=== PATIENT | female | born 1995 | race Caucasian/White ===

== ENCOUNTER 2018-03-04 07:54 | Inpatient (IN) | payer OTHER ==
[2018-03-04] MEDS: SODIUM CHLORIDE 0.9% 1L BAG IV* (08:44)
[2018-03-04 09:13] LABS: AADO2 Arterial 79.3 mmHg (7.0-24.0); Allen Test ACCEPTAB; Arterial Base Excess 2.8 mmol/L (-3.0-3); Arterial Blood Gas Oxygen Sat 99.3 mmHG (95.0-98.0); Arterial COHb 0.6 % (0.0-3.0); Arterial Fraction of Oxyhgb 98.3 % (93.0-99.0); Arterial MetHb 0.4 % (0.0-1.5); Arterial Total Hemglobin 13.7 g/dl (12.0-18.0); Arterial pCO2 35.6 mmhg (35-45); MODE VENT - AC; Site Left Radial
[2018-03-04 09:23] LABS: ADD MAN DIFF? NO
[2018-03-04 09:32] LABS: ABNORMAL IP MESSAGE 1; BASOPHILS % 0.2 % (0.0-2.0); HEMATOCRIT 27.4 % (37.0-47.0); HEMOGLOBIN 10.3 g/dl (12.0-16.0); LYMPHOCYTES # 1.5 10^3/ul (0.8-2.9); LYMPHOCYTES % 7.1 % (15.0-51.0); MEAN CORPUSCULAR HEMOGLOBIN 28.9 pg (29.0-33.0); MEAN PLATELET VOLUME 8.5 fl (7.4-10.4); MONOCYTE # 1.8 10^3/ul (0.3-0.9); MONOCYTES % 8.3 % (0.0-11.0); NEUTROPHIL # 17.4 10^3/ul (1.6-7.5); NEUTROPHILS % 80.6 % (39.0-77.0); PLATELET COUNT 369 10^3/UL (140-415); RED BLOOD COUNT 3.56 10^6/ul (4.20-5.40); RED CELL DISTRIBUTION WIDTH 13.2 % (11.5-14.5)
[2018-03-04 09:32] LABS: WHITE BLOOD COUNT 21.6 10^3/ul (4.8-10.8)
[2018-03-04 09:37] LABS: MEAN CORPUSCULAR HGB CONC 37.6 g/dl (32.0-37.0)
[2018-03-04 09:51] LABS: LACTIC ACID 1.8 mmol/L (0.5-2.0)
[2018-03-04 09:52] LABS: PROTIME 15.4 Sec (11.9-14.9); PT RATIO 1.2
[2018-03-04 09:53] LABS: ALANINE AMINOTRANSFERASE 63 IU/L (13-69); ALBUMIN 3.2 g/dl (3.3-4.9); ALBUMIN/GLOBULIN RATIO 1.23; ALKALINE PHOSPHATASE 129 IU/L (42-121); ANION GAP 16 (8-16); ASPARTATE AMINO TRANSFERASE 22 IU/L (15-46); BILIRUBIN,INDIRECT 0.3 mg/dl (0-1.1); BILIRUBIN,TOTAL 0.3 mg/dl (0.2-1.3); BLOOD UREA NITROGEN 17 mg/dl (7-20); CALCIUM 8.5 mg/dl (8.4-10.2); CARBON DIOXIDE 28 mmol/L (21-31); CHLORIDE 82 mmol/L (97-110); CREATININE 0.27 mg/dl (0.44-1.00); GLUCOSE 145 mg/dl (70-220); PARTIAL THROMBOPLASTIN TIME 26.4 Sec (25.0-35.0); SODIUM 122 mmol/L (135-144); TOTAL PROTEIN 5.8 g/dl (6.1-8.1)
[2018-03-04 09:55] LABS: PHENYTOIN (DILANTIN) 5.2 ug/ml (10.0-20.0)
[2018-03-04 10:12] LABS: TROPONIN-I 0.121 ng/ml (0.000-0.120)
[2018-03-04] MEDS: CEFEPIME 2GM/50 ML (PMX) 50 ML IVPB ×2 (10:27→20:47)
[2018-03-04 10:42] LABS: ADD UMIC NO; UR ASCORBIC ACID NEGATIVE (NEGATIVE); UR BILIRUBIN (Dip) NEGATIVE (NEGATIVE); UR BLOOD (Dip) NEGATIVE (NEGATIVE); UR CLARITY CLEAR (CLEAR); UR COLOR COLORLESS (YELLOW); UR GLUCOSE (Dip) NEGATIVE (NEGATIVE); UR KETONES (Dip) NEGATIVE (NEGATIVE); UR LEUKOCYTE ESTERASE (Dip) NEGATIVE Leu/ul (NEGATIVE); UR NITRITE (Dip) NEGATIVE (NEGATIVE); UR SPECIFIC GRAVITY (Dip) 1.001 (1.003-1.030); UR TOTAL PROTEIN (Dip) NEGATIVE (NEGATIVE); UR UROBILINOGEN (Dip) NEGATIVE (NEGATIVE)
[2018-03-04] MEDS: ASPIRIN 300 MG SUPP PR (10:44)
[2018-03-04] MEDS: VANCOMYCIN 1 GM (PMX) 250 ML IVPB (10:54)
[2018-03-04] MEDS ORDERED: ACETAMINOPHEN 325 MG TAB PO (11:00)
[2018-03-04] MEDS ORDERED: ONDANSETRON 4 MG INJ IV (11:00)
[2018-03-04] MEDS ORDERED: NACL 0.9% 3 ML SYG IV (11:30)
[2018-03-04 12:20] LABS: LACTIC ACID 1.7 mmol/L (0.5-2.0)
[2018-03-04] MEDS: SOD CHLORIDE 0.9% 1,000 ML IV (12:52)
[2018-03-04] MEDS: PHENYTOIN (100 MG/4 ML) CUP GTB (14:00)
[2018-03-04] MEDS: LEVETIRACETAM (100 MG/ML) 5ML CUP GTB ×2 (14:34→20:43)
[2018-03-04] MEDS: predniSONE 5 MG TAB GTB (14:34)
[2018-03-04] MEDS: METOPROLOL 50 MG TAB GTB ×2 (14:34→20:43)
[2018-03-04 14:35] LABS: LACTIC ACID 1.7 mmol/L (0.5-2.0)
[2018-03-04] MEDS ORDERED: ACETAMINOPHEN 160 MG/5ML CUP GTB (15:00)
[2018-03-04] MEDS: LEVOFLOXACIN 750MG/D5W (PMX) 150 ML IVPB (16:26)
[2018-03-04] MEDS ORDERED: ALBUTEROL 0.083% (NEB) 2.5 MG/3 ML AMP NEB (17:00)
[2018-03-04] MEDS: ALBUTEROL HFA 8 GM INHALER INH ×2 (17:53→19:57)
[2018-03-04 18:24] LABS: CREATINE KINASE < 20 IU/L (23-200)
[2018-03-04 18:24] LABS: SODIUM,URINE RANDOM < 13 mmol/L (30-90)
[2018-03-04 18:35] LABS: CK-MB 0.83 ng/ml (0.0-2.4); TROPONIN-I 0.018 ng/ml (0.000-0.120)
[2018-03-04] MEDS: ACETYLCYSTEINE 20% 4 ML VIAL NEB (19:43)
[2018-03-04 20:10] LABS: OSMOLALITY 263 mOsm/kg (280-295)
[2018-03-04] MEDS: BACITRACIN/POLYMYX 3.5 GM OPH OINT BOTH EYES (20:42)
[2018-03-04] MEDS: FAMOTIDINE 20 MG TAB GTB ×2 (20:43)
[2018-03-04] MEDS: PHENYTOIN (25 MG/ML PO SYG) GTB (20:43)
[2018-03-04] MEDS: MONTELUKAST 10 MG TAB GTB (20:44)
[2018-03-04 20:47] LABS: OSMOLALITY,URINE 79 mOsm/kg (250-1200)
[2018-03-04 22:59] LABS: CK-MB 0.28 ng/ml (0.0-2.4)
[2018-03-04 23:00] LABS: CREATINE KINASE < 20 IU/L (23-200); TROPONIN-I < 0.012 ng/ml (0.000-0.120)
[2018-03-05] MEDS: ALBUTEROL HFA 8 GM INHALER INH ×6 (00:27→20:10)
[2018-03-05 06:44] LABS: ADD MAN DIFF? NO
[2018-03-05 07:07] LABS: WHITE BLOOD COUNT 14.8 10^3/ul (4.8-10.8)
[2018-03-05 07:08] LABS: BASOPHIL # 0.1 10^3/ul (0.0-0.1); BASOPHILS % 0.5 % (0.0-2.0); EOSINOPHILS # 0.1 10^3/ul (0.0-0.5); EOSINOPHILS % 0.5 % (0.0-7.0); HEMATOCRIT 26.1 % (37.0-47.0); HEMOGLOBIN 9.5 g/dl (12.0-16.0); LYMPHOCYTES % 13.6 % (15.0-51.0); MEAN CORPUSCULAR HEMOGLOBIN 28.7 pg (29.0-33.0); MEAN CORPUSCULAR HGB CONC 36.4 g/dl (32.0-37.0); MEAN CORPUSCULAR VOLUME 78.9 fl (82.0-101.0); MEAN PLATELET VOLUME 9.3 fl (7.4-10.4); MONOCYTE # 1.4 10^3/ul (0.3-0.9); MONOCYTES % 9.7 % (0.0-11.0); NEUTROPHIL # 10.7 10^3/ul (1.6-7.5); NEUTROPHILS % 72.8 % (39.0-77.0); PLATELET COUNT 295 10^3/UL (140-415); POSITIVE DIFF @See below; RED BLOOD COUNT 3.31 10^6/ul (4.20-5.40); RED CELL DISTRIBUTION WIDTH 13.7 % (11.5-14.5)
[2018-03-05 07:29] LABS: ANION GAP 13 (8-16); BLOOD UREA NITROGEN 14 mg/dl (7-20); CALCIUM 8.8 mg/dl (8.4-10.2); CARBON DIOXIDE 26 mmol/L (21-31); CHLORIDE 99 mmol/L (97-110); CREATININE 0.17 mg/dl (0.44-1.00); GLUCOSE 117 mg/dl (70-220); POTASSIUM 4.3 mmol/L (3.5-5.1); SODIUM 134 mmol/L (135-144)
[2018-03-05] MEDS: BACITRACIN/POLYMYX 3.5 GM OPH OINT BOTH EYES ×3 (08:58→22:35)
[2018-03-05] MEDS: FAMOTIDINE 20 MG TAB GTB ×3 (08:58→22:35)
[2018-03-05] MEDS: CHOLECALCIFEROL 400 UNITS TAB GTB (08:58)
[2018-03-05] MEDS: predniSONE 5 MG TAB GTB (08:58)
[2018-03-05] MEDS: ACETAMINOPHEN 325 MG TAB GTB (08:58)
[2018-03-05] MEDS: CEFEPIME 2GM/50 ML (PMX) 50 ML IVPB ×2 (08:59→22:35)
[2018-03-05] MEDS: LACTOBACILLUS RHAMNOSUS CAP GTB (08:59)
[2018-03-05] MEDS: METOPROLOL 50 MG TAB GTB ×2 (09:00→22:36)
[2018-03-05] MEDS: LEVETIRACETAM (100 MG/ML) 5ML CUP GTB ×2 (09:00→22:35)
[2018-03-05] MEDS: FERROUS SULFATE 60 MG/ML 5ML CUP PO (09:00)
[2018-03-05] MEDS: PHENYTOIN (25 MG/ML PO SYG) GTB ×2 (09:01→22:35)
[2018-03-05] MEDS: ENOXAPARIN 40 MG/0.4 ML SYG SC (09:21)
[2018-03-05] MEDS: ACETYLCYSTEINE 20% 4 ML VIAL NEB ×2 (09:26→20:11)
[2018-03-05 09:43] LABS: AADO2 Arterial 38.2 mmHg (7.0-24.0); Allen Test ACCEPTAB; Arterial Base Excess 2.8 mmol/L (-3.0-3); Arterial Blood Gas Oxygen Sat 98.8 mmHG (95.0-98.0); Arterial COHb 0.3 % (0.0-3.0); Arterial Fraction of Oxyhgb 98.1 % (93.0-99.0); Arterial HCO3 26.3 mmol/L (22.0-26.0); Arterial MetHb 0.4 % (0.0-1.5); Arterial Total Hemglobin 12.8 g/dl (12.0-18.0); Arterial pCO2 36.6 mmhg (35-45); MODE VENT - AC; Site Left Radial
[2018-03-05] MEDS: LEVOFLOXACIN 750MG/D5W (PMX) 150 ML IVPB (11:09)
[2018-03-05] MEDS: ARTIFICIAL TEARS 15 ML OPH BOTH EYES (11:09)
[2018-03-05] MEDS: MONTELUKAST 10 MG TAB GTB (22:34)
[2018-03-06] MEDS: ALBUTEROL HFA 8 GM INHALER INH ×5 (01:50→19:50)
[2018-03-06 01:59] LABS: ANION GAP 19 (8-16); CARBON DIOXIDE 21 mmol/L (21-31); CHLORIDE 96 mmol/L (97-110); POTASSIUM 5.8 mmol/L (3.5-5.1); SODIUM 130 mmol/L (135-144)
[2018-03-06] MEDS: NA POLYST SULFON 15 GM/60 ML BTL PO (02:39)
[2018-03-06 05:41] LABS: ADD MAN DIFF? NO
[2018-03-06 05:52] LABS: WHITE BLOOD COUNT 13.1 10^3/ul (4.8-10.8)
[2018-03-06 05:52] LABS: BASOPHIL # 0.1 10^3/ul (0.0-0.1); BASOPHILS % 0.5 % (0.0-2.0); EOSINOPHILS # 0.1 10^3/ul (0.0-0.5); EOSINOPHILS % 0.9 % (0.0-7.0); HEMATOCRIT 28.7 % (37.0-47.0); HEMOGLOBIN 10.1 g/dl (12.0-16.0); LYMPHOCYTES # 2.1 10^3/ul (0.8-2.9); LYMPHOCYTES % 16.3 % (15.0-51.0); MEAN CORPUSCULAR HEMOGLOBIN 28.8 pg (29.0-33.0); MEAN CORPUSCULAR HGB CONC 35.2 g/dl (32.0-37.0); MEAN CORPUSCULAR VOLUME 81.8 fl (82.0-101.0); MEAN PLATELET VOLUME 8.8 fl (7.4-10.4); MONOCYTES % 7.4 % (0.0-11.0); NEUTROPHIL # 9.6 10^3/ul (1.6-7.5); NEUTROPHILS % 72.8 % (39.0-77.0); PLATELET COUNT 386 10^3/UL (140-415); RED BLOOD COUNT 3.51 10^6/ul (4.20-5.40)
[2018-03-06 06:39] LABS: ANION GAP 17 (8-16); BLOOD UREA NITROGEN 11 mg/dl (7-20); CARBON DIOXIDE 25 mmol/L (21-31); CHLORIDE 96 mmol/L (97-110); CREATININE 0.19 mg/dl (0.44-1.00); GLUCOSE 129 mg/dl (70-220); MAGNESIUM 1.9 mg/dl (1.7-2.5); PHOSPHORUS 3.9 mg/dl (2.5-4.9); POTASSIUM 4.4 mmol/L (3.5-5.1); SODIUM 134 mmol/L (135-144)
[2018-03-06] MEDS: ARTIFICIAL TEARS 15 ML OPH BOTH EYES (07:43)
[2018-03-06] MEDS: BACITRACIN/POLYMYX 3.5 GM OPH OINT BOTH EYES ×3 (07:43→21:39)
[2018-03-06] MEDS: LORAZEPAM 0.5 MG TAB GTB (07:44)
[2018-03-06] MEDS: CEFEPIME 2GM/50 ML (PMX) 50 ML IVPB ×2 (07:44→21:41)
[2018-03-06] MEDS: LEVETIRACETAM (100 MG/ML) 5ML CUP GTB ×2 (07:45→21:40)
[2018-03-06] MEDS: FERROUS SULFATE 60 MG/ML 5ML CUP PO (07:45)
[2018-03-06] MEDS: ONDANSETRON 4 MG INJ IV (07:45)
[2018-03-06] MEDS: PHENYTOIN (25 MG/ML PO SYG) GTB ×2 (07:46→21:40)
[2018-03-06] MEDS: LACTOBACILLUS RHAMNOSUS CAP GTB (07:46)
[2018-03-06] MEDS: FAMOTIDINE 20 MG TAB GTB ×2 (07:47→21:40)
[2018-03-06] MEDS: predniSONE 5 MG TAB GTB (07:47)
[2018-03-06] MEDS: CHOLECALCIFEROL 400 UNITS TAB GTB (07:47)
[2018-03-06] MEDS: ENOXAPARIN 40 MG/0.4 ML SYG SC (07:59)
[2018-03-06] MEDS: ACETYLCYSTEINE 20% 4 ML VIAL NEB ×2 (08:38→19:50)
[2018-03-06] MEDS ORDERED: METOPROLOL 50 MG TAB GTB (09:00)
[2018-03-06] MEDS ORDERED: METOPROLOL 100 MG TAB PO (09:00)
[2018-03-06] MEDS: METOPROLOL 100 MG TAB GTB ×2 (09:04→21:40)
[2018-03-06] MEDS ORDERED: VANCOMYCIN IV PER PHARMACY XX (09:30)
[2018-03-06] MEDS: metroNIDAZOLE 500 MG/NS (PMX) 100 ML IVPB ×2 (12:30→21:41)
[2018-03-06] MEDS: LEVOFLOXACIN 750MG/D5W (PMX) 150 ML IVPB (12:31)
[2018-03-06] MEDS: VANCOMYCIN 1 GM 250 ML IVPB (13:33)
[2018-03-06] MEDS: VANCOMYCIN 500MG/NS (PMX) 100 ML IVPB (19:54)
[2018-03-06] MEDS: MONTELUKAST 10 MG TAB GTB (21:40)
[2018-03-07] MEDS: ALBUTEROL HFA 8 GM INHALER INH ×4 (01:26→19:24)
[2018-03-07] MEDS: VANCOMYCIN 500MG/NS (PMX) 100 ML IVPB ×2 (03:51→12:42)
[2018-03-07] MEDS: metroNIDAZOLE 500 MG/NS (PMX) 100 ML IVPB ×3 (05:26→21:18)
[2018-03-07 05:30] LABS: ADD MAN DIFF? NO
[2018-03-07 05:34] LABS: BASOPHIL # 0.1 10^3/ul (0.0-0.1); BASOPHILS % 0.6 % (0.0-2.0); EOSINOPHILS # 0.2 10^3/ul (0.0-0.5); EOSINOPHILS % 1.9 % (0.0-7.0); HEMATOCRIT 28.8 % (37.0-47.0); HEMOGLOBIN 10.1 g/dl (12.0-16.0); LYMPHOCYTES # 1.7 10^3/ul (0.8-2.9); MEAN CORPUSCULAR HEMOGLOBIN 28.6 pg (29.0-33.0); MEAN CORPUSCULAR HGB CONC 35.1 g/dl (32.0-37.0); MEAN CORPUSCULAR VOLUME 81.6 fl (82.0-101.0); MEAN PLATELET VOLUME 8.9 fl (7.4-10.4); MONOCYTE # 0.9 10^3/ul (0.3-0.9); MONOCYTES % 8.3 % (0.0-11.0); NEUTROPHIL # 7.7 10^3/ul (1.6-7.5); NEUTROPHILS % 71.1 % (39.0-77.0); PLATELET COUNT 333 10^3/UL (140-415); RED BLOOD COUNT 3.53 10^6/ul (4.20-5.40)
[2018-03-07 05:34] LABS: WHITE BLOOD COUNT 10.8 10^3/ul (4.8-10.8)
[2018-03-07 05:58] LABS: ANION GAP 18 (8-16); BLOOD UREA NITROGEN 8 mg/dl (7-20); CALCIUM 9.1 mg/dl (8.4-10.2); CARBON DIOXIDE 25 mmol/L (21-31); CHLORIDE 95 mmol/L (97-110); GLUCOSE 125 mg/dl (70-220); MAGNESIUM 1.8 mg/dl (1.7-2.5); PHOSPHORUS 4.4 mg/dl (2.5-4.9); POTASSIUM 4.1 mmol/L (3.5-5.1); SODIUM 134 mmol/L (135-144)
[2018-03-07] MEDS: CEFEPIME 2GM/50 ML (PMX) 50 ML IVPB ×2 (07:45→20:40)
[2018-03-07] MEDS: predniSONE 5 MG TAB GTB (08:16)
[2018-03-07] MEDS: ONDANSETRON 4 MG INJ IV (08:16)
[2018-03-07] MEDS: LACTOBACILLUS RHAMNOSUS CAP GTB (08:16)
[2018-03-07] MEDS: ACETAMINOPHEN 325 MG TAB GTB (08:17)
[2018-03-07] MEDS: CHOLECALCIFEROL 400 UNITS TAB GTB (08:17)
[2018-03-07] MEDS: LEVETIRACETAM (100 MG/ML) 5ML CUP GTB ×2 (08:17→20:40)
[2018-03-07] MEDS: METOPROLOL 100 MG TAB GTB ×2 (08:17→20:40)
[2018-03-07] MEDS: FERROUS SULFATE 60 MG/ML 5ML CUP PO (08:17)
[2018-03-07] MEDS: LORAZEPAM 0.5 MG TAB GTB ×2 (08:18→16:00)
[2018-03-07] MEDS: FAMOTIDINE 20 MG TAB GTB ×2 (08:18→20:39)
[2018-03-07] MEDS: BACITRACIN/POLYMYX 3.5 GM OPH OINT BOTH EYES ×3 (08:18→20:39)
[2018-03-07] MEDS: PHENYTOIN (25 MG/ML PO SYG) GTB ×2 (08:18→20:39)
[2018-03-07] MEDS: ENOXAPARIN 40 MG/0.4 ML SYG SC (08:19)
[2018-03-07] MEDS: LEVOFLOXACIN 750MG/D5W (PMX) 150 ML IVPB (11:56)
[2018-03-07 12:04] LABS: ADD UMIC NO; UR ASCORBIC ACID NEGATIVE (NEGATIVE); UR BILIRUBIN (Dip) NEGATIVE (NEGATIVE); UR BLOOD (Dip) NEGATIVE (NEGATIVE); UR CLARITY CLEAR (CLEAR); UR COLOR STRAW (YELLOW); UR GLUCOSE (Dip) NEGATIVE (NEGATIVE); UR KETONES (Dip) NEGATIVE (NEGATIVE); UR LEUKOCYTE ESTERASE (Dip) NEGATIVE Leu/ul (NEGATIVE); UR NITRITE (Dip) NEGATIVE (NEGATIVE); UR SPECIFIC GRAVITY (Dip) 1.011 (1.003-1.030); UR TOTAL PROTEIN (Dip) NEGATIVE (NEGATIVE); UR UROBILINOGEN (Dip) NEGATIVE (NEGATIVE)
[2018-03-07 12:05] LABS: VANCOMYCIN,TROUGH 6.6 ug/ml (10.0-20.0)
[2018-03-07] MEDS: VANCOMYCIN 750 MG in SOD CHLORIDE 0.9% 150 ML IVPB (19:52)
[2018-03-07] MEDS: MONTELUKAST 10 MG TAB GTB (20:39)
[2018-03-08] MEDS: ALBUTEROL HFA 8 GM INHALER INH ×4 (01:11→19:21)
[2018-03-08] MEDS: LORAZEPAM 0.5 MG TAB GTB (01:47)
[2018-03-08] MEDS: VANCOMYCIN 750 MG in SOD CHLORIDE 0.9% 150 ML IVPB ×3 (03:25→20:45)
[2018-03-08] MEDS: metroNIDAZOLE 500 MG/NS (PMX) 100 ML IVPB ×3 (05:22→21:16)
[2018-03-08 06:05] LABS: ADD MAN DIFF? NO
[2018-03-08 06:20] LABS: WHITE BLOOD COUNT 10.7 10^3/ul (4.8-10.8)
[2018-03-08 06:20] LABS: BASOPHIL # 0.1 10^3/ul (0.0-0.1); BASOPHILS % 0.7 % (0.0-2.0); EOSINOPHILS # 0.2 10^3/ul (0.0-0.5); EOSINOPHILS % 2.2 % (0.0-7.0); HEMATOCRIT 27.4 % (37.0-47.0); HEMOGLOBIN 9.5 g/dl (12.0-16.0); LYMPHOCYTES # 2.4 10^3/ul (0.8-2.9); LYMPHOCYTES % 22.1 % (15.0-51.0); MEAN CORPUSCULAR HEMOGLOBIN 28.8 pg (29.0-33.0); MEAN CORPUSCULAR HGB CONC 34.7 g/dl (32.0-37.0); MEAN PLATELET VOLUME 8.5 fl (7.4-10.4); MONOCYTE # 0.8 10^3/ul (0.3-0.9); MONOCYTES % 7.3 % (0.0-11.0); NEUTROPHIL # 6.9 10^3/ul (1.6-7.5); NEUTROPHILS % 64.4 % (39.0-77.0); PLATELET COUNT 342 10^3/UL (140-415); RED CELL DISTRIBUTION WIDTH 13.6 % (11.5-14.5)
[2018-03-08 06:33] LABS: ANION GAP 16 (8-16); BLOOD UREA NITROGEN 10 mg/dl (7-20); CALCIUM 9.1 mg/dl (8.4-10.2); CARBON DIOXIDE 26 mmol/L (21-31); CHLORIDE 99 mmol/L (97-110); CREATININE 0.23 mg/dl (0.44-1.00); GLUCOSE 119 mg/dl (70-220); MAGNESIUM 1.9 mg/dl (1.7-2.5); PHOSPHORUS 4.2 mg/dl (2.5-4.9); POTASSIUM 4.6 mmol/L (3.5-5.1); SODIUM 136 mmol/L (135-144)
[2018-03-08] MEDS: LACTOBACILLUS RHAMNOSUS CAP GTB (08:22)
[2018-03-08] MEDS: CHOLECALCIFEROL 400 UNITS TAB GTB (08:22)
[2018-03-08] MEDS: METOPROLOL 50 MG TAB GTB ×2 (08:22→20:47)
[2018-03-08] MEDS: FAMOTIDINE 20 MG TAB GTB ×2 (08:23→20:48)
[2018-03-08] MEDS: FERROUS SULFATE 60 MG/ML 5ML CUP PO (08:23)
[2018-03-08] MEDS: LEVETIRACETAM (100 MG/ML) 5ML CUP GTB ×2 (08:25→20:46)
[2018-03-08] MEDS: PHENYTOIN (25 MG/ML PO SYG) GTB ×2 (08:26→20:46)
[2018-03-08] MEDS: ENOXAPARIN 40 MG/0.4 ML SYG SC (08:27)
[2018-03-08] MEDS: ARTIFICIAL TEARS 15 ML OPH BOTH EYES (08:29)
[2018-03-08] MEDS: CEFEPIME 2GM/50 ML (PMX) 50 ML IVPB ×2 (08:29→21:15)
[2018-03-08] MEDS: BACITRACIN/POLYMYX 3.5 GM OPH OINT BOTH EYES ×3 (08:30→20:45)
[2018-03-08] MEDS: MONTELUKAST 10 MG TAB GTB (20:47)
[2018-03-09] MEDS: ALBUTEROL HFA 8 GM INHALER INH ×4 (01:20→21:35)
[2018-03-09 03:13] LABS: ADD MAN DIFF? NO
[2018-03-09 03:15] LABS: WHITE BLOOD COUNT 12.7 10^3/ul (4.8-10.8)
[2018-03-09 03:15] LABS: BASOPHIL # 0.1 10^3/ul (0.0-0.1); BASOPHILS % 0.5 % (0.0-2.0); EOSINOPHILS # 0.4 10^3/ul (0.0-0.5); EOSINOPHILS % 3.1 % (0.0-7.0); HEMATOCRIT 30.2 % (37.0-47.0); HEMOGLOBIN 10.5 g/dl (12.0-16.0); LYMPHOCYTES # 2.3 10^3/ul (0.8-2.9); LYMPHOCYTES % 18.3 % (15.0-51.0); MEAN CORPUSCULAR HEMOGLOBIN 28.5 pg (29.0-33.0); MEAN CORPUSCULAR HGB CONC 34.8 g/dl (32.0-37.0); MEAN CORPUSCULAR VOLUME 82.1 fl (82.0-101.0); MEAN PLATELET VOLUME 8.5 fl (7.4-10.4); MONOCYTE # 0.9 10^3/ul (0.3-0.9); MONOCYTES % 7.2 % (0.0-11.0); NEUTROPHIL # 8.7 10^3/ul (1.6-7.5); NEUTROPHILS % 68.3 % (39.0-77.0); PLATELET COUNT 369 10^3/UL (140-415); RED BLOOD COUNT 3.68 10^6/ul (4.20-5.40); RED CELL DISTRIBUTION WIDTH 13.7 % (11.5-14.5)
[2018-03-09 03:49] LABS: ANION GAP 13 (8-16); BLOOD UREA NITROGEN 12 mg/dl (7-20); CALCIUM 9.1 mg/dl (8.4-10.2); CARBON DIOXIDE 27 mmol/L (21-31); CHLORIDE 100 mmol/L (97-110); CREATININE 0.22 mg/dl (0.44-1.00); GLUCOSE 113 mg/dl (70-220); MAGNESIUM 1.9 mg/dl (1.7-2.5); PHOSPHORUS 4.3 mg/dl (2.5-4.9); POTASSIUM 4.9 mmol/L (3.5-5.1); SODIUM 135 mmol/L (135-144)
[2018-03-09] MEDS: VANCOMYCIN 750 MG in SOD CHLORIDE 0.9% 150 ML IVPB ×3 (05:04→21:00)
[2018-03-09] MEDS: metroNIDAZOLE 500 MG/NS (PMX) 100 ML IVPB ×3 (05:04→21:03)
[2018-03-09] MEDS: LACTOBACILLUS RHAMNOSUS CAP GTB (07:51)
[2018-03-09] MEDS: CHOLECALCIFEROL 400 UNITS TAB GTB (07:51)
[2018-03-09] MEDS: FAMOTIDINE 20 MG TAB GTB ×2 (07:51→21:00)
[2018-03-09] MEDS: FERROUS SULFATE 60 MG/ML 5ML CUP PO (07:51)
[2018-03-09] MEDS: LEVETIRACETAM (100 MG/ML) 5ML CUP GTB ×2 (07:51→21:00)
[2018-03-09] MEDS: CEFEPIME 2GM/50 ML (PMX) 50 ML IVPB ×2 (07:51→21:00)
[2018-03-09] MEDS: PHENYTOIN (25 MG/ML PO SYG) GTB ×2 (07:52→21:00)
[2018-03-09] MEDS: BACITRACIN/POLYMYX 3.5 GM OPH OINT BOTH EYES ×3 (07:52→21:01)
[2018-03-09] MEDS: ENOXAPARIN 40 MG/0.4 ML SYG SC (07:54)
[2018-03-09] MEDS: METOPROLOL 50 MG TAB GTB ×2 (08:05→21:01)
[2018-03-09] MEDS: MONTELUKAST 10 MG TAB GTB (21:00)
[2018-03-10] MEDS: ALBUTEROL HFA 8 GM INHALER INH ×4 (02:00→19:41)
[2018-03-10] MEDS: VANCOMYCIN 750 MG in SOD CHLORIDE 0.9% 150 ML IVPB ×2 (04:24→11:54)
[2018-03-10] MEDS: metroNIDAZOLE 500 MG/NS (PMX) 100 ML IVPB ×2 (05:56→14:30)
[2018-03-10 08:55] LABS: ADD MAN DIFF? NO
[2018-03-10] MEDS: FAMOTIDINE 20 MG TAB GTB ×2 (08:56→20:51)
[2018-03-10] MEDS: LACTOBACILLUS RHAMNOSUS CAP GTB (08:56)
[2018-03-10] MEDS: CHOLECALCIFEROL 400 UNITS TAB GTB (08:56)
[2018-03-10] MEDS: METOPROLOL 50 MG TAB GTB ×2 (08:56→20:51)
[2018-03-10] MEDS: PHENYTOIN (25 MG/ML PO SYG) GTB ×2 (08:57→20:50)
[2018-03-10] MEDS: FERROUS SULFATE 60 MG/ML 5ML CUP PO (08:57)
[2018-03-10] MEDS: LEVETIRACETAM (100 MG/ML) 5ML CUP GTB ×2 (08:57→20:50)
[2018-03-10 09:00] LABS: WHITE BLOOD COUNT 10.1 10^3/ul (4.8-10.8)
[2018-03-10 09:00] LABS: BASOPHIL # 0.1 10^3/ul (0.0-0.1); BASOPHILS % 0.7 % (0.0-2.0); EOSINOPHILS # 0.3 10^3/ul (0.0-0.5); EOSINOPHILS % 2.6 % (0.0-7.0); HEMATOCRIT 29.7 % (37.0-47.0); HEMOGLOBIN 10.2 g/dl (12.0-16.0); LYMPHOCYTES # 2.2 10^3/ul (0.8-2.9); LYMPHOCYTES % 21.4 % (15.0-51.0); MEAN CORPUSCULAR HEMOGLOBIN 28.5 pg (29.0-33.0); MEAN CORPUSCULAR HGB CONC 34.3 g/dl (32.0-37.0); MEAN PLATELET VOLUME 8.9 fl (7.4-10.4); MONOCYTE # 1.1 10^3/ul (0.3-0.9); MONOCYTES % 10.7 % (0.0-11.0); NEUTROPHIL # 6.1 10^3/ul (1.6-7.5); NEUTROPHILS % 60.6 % (39.0-77.0); PLATELET COUNT 366 10^3/UL (140-415); RED BLOOD COUNT 3.58 10^6/ul (4.20-5.40); RED CELL DISTRIBUTION WIDTH 13.5 % (11.5-14.5)
[2018-03-10] MEDS: ENOXAPARIN 40 MG/0.4 ML SYG SC (09:04)
[2018-03-10] MEDS: BACITRACIN/POLYMYX 3.5 GM OPH OINT BOTH EYES ×3 (09:06→20:51)
[2018-03-10] MEDS: CEFEPIME 2GM/50 ML (PMX) 50 ML IVPB (09:06)
[2018-03-10 09:30] LABS: ANION GAP 14 (8-16); BLOOD UREA NITROGEN 9 mg/dl (7-20); CALCIUM 8.9 mg/dl (8.4-10.2); CARBON DIOXIDE 25 mmol/L (21-31); CHLORIDE 98 mmol/L (97-110); CREATININE 0.17 mg/dl (0.44-1.00); GLUCOSE 101 mg/dl (70-220); MAGNESIUM 1.7 mg/dl (1.7-2.5); PHOSPHORUS 4.4 mg/dl (2.5-4.9); POTASSIUM 4.5 mmol/L (3.5-5.1); SODIUM 132 mmol/L (135-144)
[2018-03-10] MEDS: MONTELUKAST 10 MG TAB GTB (20:51)
[2018-03-11] MEDS: ALBUTEROL HFA 8 GM INHALER INH ×4 (01:51→19:55)
[2018-03-11] MEDS: FERROUS SULFATE 60 MG/ML 5ML CUP PO (08:28)
[2018-03-11] MEDS: LEVETIRACETAM (100 MG/ML) 5ML CUP GTB ×2 (08:28→20:48)
[2018-03-11] MEDS: METOPROLOL 50 MG TAB GTB ×2 (08:29→20:45)
[2018-03-11] MEDS: PHENYTOIN (25 MG/ML PO SYG) GTB ×2 (08:30→20:49)
[2018-03-11] MEDS: FAMOTIDINE 20 MG TAB GTB ×2 (08:30→21:09)
[2018-03-11] MEDS: LACTOBACILLUS RHAMNOSUS CAP GTB (08:30)
[2018-03-11] MEDS: ARTIFICIAL TEARS 15 ML OPH BOTH EYES (08:32)
[2018-03-11] MEDS: CHOLECALCIFEROL 400 UNITS TAB GTB (08:32)
[2018-03-11] MEDS: ENOXAPARIN 40 MG/0.4 ML SYG SC (08:44)
[2018-03-11] MEDS: BACITRACIN/POLYMYX 3.5 GM OPH OINT BOTH EYES ×3 (09:28→20:50)
[2018-03-11] MEDS: MONTELUKAST 10 MG TAB GTB (20:44)
[2018-03-12] MEDS: ALBUTEROL HFA 8 GM INHALER INH ×4 (02:00→20:25)
[2018-03-12] MEDS: LACTOBACILLUS RHAMNOSUS CAP GTB (08:24)
[2018-03-12] MEDS: FERROUS SULFATE 60 MG/ML 5ML CUP PO (08:24)
[2018-03-12] MEDS: PHENYTOIN (25 MG/ML PO SYG) GTB ×2 (08:24→20:48)
[2018-03-12] MEDS: LEVETIRACETAM (100 MG/ML) 5ML CUP GTB ×2 (08:24→20:47)
[2018-03-12] MEDS: FAMOTIDINE 20 MG TAB GTB ×2 (08:25→20:47)
[2018-03-12] MEDS: CHOLECALCIFEROL 400 UNITS TAB GTB (08:25)
[2018-03-12] MEDS: METOPROLOL 50 MG TAB GTB ×2 (08:26→20:48)
[2018-03-12] MEDS: BACITRACIN/POLYMYX 3.5 GM OPH OINT BOTH EYES ×3 (08:26→20:48)
[2018-03-12] MEDS: ENOXAPARIN 40 MG/0.4 ML SYG SC (08:27)
[2018-03-12] MEDS: MONTELUKAST 10 MG TAB GTB (20:47)
[2018-03-13] MEDS: ALBUTEROL HFA 8 GM INHALER INH ×4 (01:17→20:27)
[2018-03-13] MEDS: FERROUS SULFATE 60 MG/ML 5ML CUP PO (08:47)
[2018-03-13] MEDS: LEVETIRACETAM (100 MG/ML) 5ML CUP GTB ×2 (08:48→21:36)
[2018-03-13] MEDS: PHENYTOIN (25 MG/ML PO SYG) GTB ×2 (08:49→21:36)
[2018-03-13] MEDS: LACTOBACILLUS RHAMNOSUS CAP GTB (08:50)
[2018-03-13] MEDS: METOPROLOL 50 MG TAB GTB ×2 (08:50→21:37)
[2018-03-13] MEDS: CHOLECALCIFEROL 400 UNITS TAB GTB (08:50)
[2018-03-13] MEDS: FAMOTIDINE 20 MG TAB GTB ×2 (08:50→21:36)
[2018-03-13] MEDS: ENOXAPARIN 40 MG/0.4 ML SYG SC (08:52)
[2018-03-13] MEDS: BACITRACIN/POLYMYX 3.5 GM OPH OINT BOTH EYES ×3 (08:53→21:37)
[2018-03-13 09:18] LABS: ADD MAN DIFF? NO
[2018-03-13 09:47] LABS: BASOPHIL # 0.1 10^3/ul (0.0-0.1); BASOPHILS % 0.8 % (0.0-2.0); EOSINOPHILS # 0.1 10^3/ul (0.0-0.5); EOSINOPHILS % 1.1 % (0.0-7.0); HEMATOCRIT 31.9 % (37.0-47.0); HEMOGLOBIN 10.9 g/dl (12.0-16.0); LYMPHOCYTES # 2.4 10^3/ul (0.8-2.9); LYMPHOCYTES % 22.8 % (15.0-51.0); MEAN CORPUSCULAR HEMOGLOBIN 28.6 pg (29.0-33.0); MEAN CORPUSCULAR HGB CONC 34.2 g/dl (32.0-37.0); MEAN CORPUSCULAR VOLUME 83.7 fl (82.0-101.0); MEAN PLATELET VOLUME 9.9 fl (7.4-10.4); MONOCYTE # 1.1 10^3/ul (0.3-0.9); MONOCYTES % 10.1 % (0.0-11.0); NEUTROPHIL # 6.5 10^3/ul (1.6-7.5); NEUTROPHILS % 62.4 % (39.0-77.0); PLATELET COUNT 382 10^3/UL (140-415); RED BLOOD COUNT 3.81 10^6/ul (4.20-5.40)
[2018-03-13 09:47] LABS: WHITE BLOOD COUNT 10.4 10^3/ul (4.8-10.8)
[2018-03-13 11:05] LABS: ALBUMIN 3.8 g/dl (3.3-4.9); ANION GAP 18 (8-16); BLOOD UREA NITROGEN 10 mg/dl (7-20); CALCIUM 9.4 mg/dl (8.4-10.2); CARBON DIOXIDE 21 mmol/L (21-31); CHLORIDE 97 mmol/L (97-110); CREATININE 0.17 mg/dl (0.44-1.00); GLUCOSE 102 mg/dl (70-220); MAGNESIUM 1.7 mg/dl (1.7-2.5); PHOSPHORUS 5.3 mg/dl (2.5-4.9); POTASSIUM 4.5 mmol/L (3.5-5.1); SODIUM 131 mmol/L (135-144)
[2018-03-13] MEDS: MONTELUKAST 10 MG TAB GTB (21:36)
[2018-03-14] MEDS: ALBUTEROL HFA 8 GM INHALER INH ×4 (01:47→21:20)
[2018-03-14 08:14] LABS: ADD MAN DIFF? NO
[2018-03-14 08:20] LABS: BASOPHILS % 0.3 % (0.0-2.0); EOSINOPHILS # 0.1 10^3/ul (0.0-0.5); EOSINOPHILS % 0.7 % (0.0-7.0); HEMATOCRIT 30.2 % (37.0-47.0); HEMOGLOBIN 10.4 g/dl (12.0-16.0); LYMPHOCYTES # 2.1 10^3/ul (0.8-2.9); LYMPHOCYTES % 17.6 % (15.0-51.0); MEAN CORPUSCULAR HEMOGLOBIN 28.3 pg (29.0-33.0); MEAN CORPUSCULAR HGB CONC 34.4 g/dl (32.0-37.0); MEAN CORPUSCULAR VOLUME 82.3 fl (82.0-101.0); MEAN PLATELET VOLUME 9.4 fl (7.4-10.4); MONOCYTE # 0.9 10^3/ul (0.3-0.9); MONOCYTES % 7.5 % (0.0-11.0); NEUTROPHIL # 8.4 10^3/ul (1.6-7.5); PLATELET COUNT 416 10^3/UL (140-415); RED BLOOD COUNT 3.67 10^6/ul (4.20-5.40); RED CELL DISTRIBUTION WIDTH 14.1 % (11.5-14.5)
[2018-03-14 08:20] LABS: WHITE BLOOD COUNT 11.6 10^3/ul (4.8-10.8)
[2018-03-14 08:46] LABS: ALBUMIN 3.7 g/dl (3.3-4.9); ANION GAP 12 (8-16); BLOOD UREA NITROGEN 7 mg/dl (7-20); CALCIUM 9.1 mg/dl (8.4-10.2); CARBON DIOXIDE 25 mmol/L (21-31); CHLORIDE 96 mmol/L (97-110); CREATININE 0.16 mg/dl (0.44-1.00); GLUCOSE 107 mg/dl (70-220); MAGNESIUM 1.8 mg/dl (1.7-2.5); PHOSPHORUS 5.4 mg/dl (2.5-4.9); POTASSIUM 4.4 mmol/L (3.5-5.1); SODIUM 129 mmol/L (135-144)
[2018-03-14] MEDS: PHENYTOIN (25 MG/ML PO SYG) GTB ×2 (08:55→21:26)
[2018-03-14] MEDS: LEVETIRACETAM (100 MG/ML) 5ML CUP GTB ×2 (08:55→21:26)
[2018-03-14] MEDS: FERROUS SULFATE 60 MG/ML 5ML CUP PO (08:56)
[2018-03-14] MEDS: CHOLECALCIFEROL 400 UNITS TAB GTB (08:56)
[2018-03-14] MEDS: BACITRACIN/POLYMYX 3.5 GM OPH OINT BOTH EYES ×3 (08:56→21:26)
[2018-03-14] MEDS: FAMOTIDINE 20 MG TAB GTB ×2 (08:56→21:27)
[2018-03-14] MEDS: LACTOBACILLUS RHAMNOSUS CAP GTB (08:57)
[2018-03-14] MEDS: METOPROLOL 50 MG TAB GTB ×2 (08:57→21:27)
[2018-03-14] MEDS: ENOXAPARIN 40 MG/0.4 ML SYG SC (08:58)
[2018-03-14] MEDS: MONTELUKAST 10 MG TAB GTB (21:27)
[2018-03-15] MEDS: ALBUTEROL HFA 8 GM INHALER INH ×4 (02:22→19:58)
[2018-03-15] MEDS: LEVETIRACETAM (100 MG/ML) 5ML CUP GTB ×2 (08:35→21:22)
[2018-03-15] MEDS: FERROUS SULFATE 60 MG/ML 5ML CUP PO (08:35)
[2018-03-15] MEDS: FAMOTIDINE 20 MG TAB GTB ×2 (08:36→21:23)
[2018-03-15] MEDS: LACTOBACILLUS RHAMNOSUS CAP GTB (08:36)
[2018-03-15] MEDS: METOPROLOL 50 MG TAB GTB ×2 (08:36→21:00)
[2018-03-15] MEDS: CHOLECALCIFEROL 400 UNITS TAB GTB (08:36)
[2018-03-15] MEDS: ARTIFICIAL TEARS 15 ML OPH BOTH EYES (08:37)
[2018-03-15] MEDS: BACITRACIN/POLYMYX 3.5 GM OPH OINT BOTH EYES ×3 (08:37→21:24)
[2018-03-15] MEDS: PHENYTOIN (25 MG/ML PO SYG) GTB ×2 (08:37→21:23)
[2018-03-15] MEDS: ENOXAPARIN 40 MG/0.4 ML SYG SC (08:40)
[2018-03-15 09:11] LABS: ADD MAN DIFF? NO
[2018-03-15 09:20] LABS: BASOPHIL # 0.1 10^3/ul (0.0-0.1); BASOPHILS % 0.4 % (0.0-2.0); EOSINOPHILS # 0.1 10^3/ul (0.0-0.5); EOSINOPHILS % 0.5 % (0.0-7.0); HEMATOCRIT 36.4 % (37.0-47.0); HEMOGLOBIN 12.4 g/dl (12.0-16.0); LYMPHOCYTES # 2.4 10^3/ul (0.8-2.9); LYMPHOCYTES % 14.9 % (15.0-51.0); MEAN CORPUSCULAR HEMOGLOBIN 28.2 pg (29.0-33.0); MEAN CORPUSCULAR HGB CONC 34.1 g/dl (32.0-37.0); MEAN CORPUSCULAR VOLUME 82.9 fl (82.0-101.0); MEAN PLATELET VOLUME 9.4 fl (7.4-10.4); MONOCYTE # 1.1 10^3/ul (0.3-0.9); MONOCYTES % 6.5 % (0.0-11.0); NEUTROPHIL # 12.3 10^3/ul (1.6-7.5); NEUTROPHILS % 76.1 % (39.0-77.0); PLATELET COUNT 487 10^3/UL (140-415); RED BLOOD COUNT 4.39 10^6/ul (4.20-5.40); RED CELL DISTRIBUTION WIDTH 14.3 % (11.5-14.5)
[2018-03-15 09:20] LABS: WHITE BLOOD COUNT 16.2 10^3/ul (4.8-10.8)
[2018-03-15 09:46] LABS: ALBUMIN 4.4 g/dl (3.3-4.9); ANION GAP 22 (8-16); BLOOD UREA NITROGEN 7 mg/dl (7-20); CALCIUM 9.8 mg/dl (8.4-10.2); CARBON DIOXIDE 22 mmol/L (21-31); CHLORIDE 95 mmol/L (97-110); CREATININE 0.18 mg/dl (0.44-1.00); GLUCOSE 101 mg/dl (70-220); MAGNESIUM 1.7 mg/dl (1.7-2.5); PHOSPHORUS 5.2 mg/dl (2.5-4.9); POTASSIUM 5.2 mmol/L (3.5-5.1); SODIUM 134 mmol/L (135-144)
[2018-03-15] MEDS ORDERED: DEXTROSE 50% 50 ML SYRINGE IV (10:30)
[2018-03-15] MEDS: INSULIN REGULAR, HUMAN 100 UNIT/1 ML 3ML VIAL IVP (12:19)
[2018-03-15] MEDS: MONTELUKAST 10 MG TAB GTB (21:23)
[2018-03-16] MEDS: ALBUTEROL HFA 8 GM INHALER INH ×5 (01:47→20:54)
[2018-03-16 07:26] LABS: ADD MAN DIFF? NO
[2018-03-16 07:33] LABS: WHITE BLOOD COUNT 9.4 10^3/ul (4.8-10.8)
[2018-03-16 07:33] LABS: BASOPHIL # 0.1 10^3/ul (0.0-0.1); BASOPHILS % 0.5 % (0.0-2.0); EOSINOPHILS # 0.1 10^3/ul (0.0-0.5); EOSINOPHILS % 1.2 % (0.0-7.0); LYMPHOCYTES # 2.3 10^3/ul (0.8-2.9); LYMPHOCYTES % 24.1 % (15.0-51.0); MEAN CORPUSCULAR HEMOGLOBIN 28.3 pg (29.0-33.0); MEAN CORPUSCULAR HGB CONC 34.4 g/dl (32.0-37.0); MEAN CORPUSCULAR VOLUME 82.3 fl (82.0-101.0); MEAN PLATELET VOLUME 8.9 fl (7.4-10.4); MONOCYTE # 0.7 10^3/ul (0.3-0.9); MONOCYTES % 7.3 % (0.0-11.0); NEUTROPHIL # 6.1 10^3/ul (1.6-7.5); NEUTROPHILS % 65.1 % (39.0-77.0); PLATELET COUNT 454 10^3/UL (140-415); RED BLOOD COUNT 3.89 10^6/ul (4.20-5.40); RED CELL DISTRIBUTION WIDTH 13.9 % (11.5-14.5)
[2018-03-16] MEDS: FERROUS SULFATE 60 MG/ML 5ML CUP PO (09:09)
[2018-03-16] MEDS: LEVETIRACETAM (100 MG/ML) 5ML CUP GTB ×2 (09:09→20:51)
[2018-03-16] MEDS: METOPROLOL 50 MG TAB GTB ×2 (09:10→20:52)
[2018-03-16] MEDS: PHENYTOIN (25 MG/ML PO SYG) GTB ×2 (09:10→20:51)
[2018-03-16] MEDS: FAMOTIDINE 20 MG TAB GTB ×2 (09:10→20:51)
[2018-03-16] MEDS: CHOLECALCIFEROL 400 UNITS TAB GTB (09:10)
[2018-03-16] MEDS: ENOXAPARIN 40 MG/0.4 ML SYG SC (09:11)
[2018-03-16] MEDS: BACITRACIN/POLYMYX 3.5 GM OPH OINT BOTH EYES ×3 (09:12→20:51)
[2018-03-16] MEDS: LACTOBACILLUS RHAMNOSUS CAP GTB (09:12)
[2018-03-16] MEDS: MONTELUKAST 10 MG TAB GTB (20:51)
[2018-03-17] MEDS: ALBUTEROL HFA 8 GM INHALER INH ×4 (02:40→20:33)
[2018-03-17] MEDS: BACITRACIN/POLYMYX 3.5 GM OPH OINT BOTH EYES ×3 (08:19→21:11)
[2018-03-17] MEDS: PHENYTOIN (25 MG/ML PO SYG) GTB ×2 (08:19→21:11)
[2018-03-17] MEDS: CHOLECALCIFEROL 400 UNITS TAB GTB (08:19)
[2018-03-17] MEDS: LEVETIRACETAM (100 MG/ML) 5ML CUP GTB ×2 (08:19→21:11)
[2018-03-17] MEDS: LACTOBACILLUS RHAMNOSUS CAP GTB (08:19)
[2018-03-17] MEDS: FAMOTIDINE 20 MG TAB GTB ×2 (08:19→21:11)
[2018-03-17] MEDS: FERROUS SULFATE 60 MG/ML 5ML CUP PO (08:19)
[2018-03-17] MEDS: METOPROLOL 50 MG TAB GTB ×2 (08:19→21:12)
[2018-03-17] MEDS: ENOXAPARIN 40 MG/0.4 ML SYG SC (08:35)
[2018-03-17 09:02] LABS: ADD MAN DIFF? NO
[2018-03-17 09:15] LABS: BASOPHILS % 0.5 % (0.0-2.0); EOSINOPHILS # 0.1 10^3/ul (0.0-0.5); EOSINOPHILS % 1.2 % (0.0-7.0); HEMATOCRIT 30.6 % (37.0-47.0); HEMOGLOBIN 10.3 g/dl (12.0-16.0); LYMPHOCYTES # 1.4 10^3/ul (0.8-2.9); MEAN CORPUSCULAR HEMOGLOBIN 27.8 pg (29.0-33.0); MEAN CORPUSCULAR HGB CONC 33.7 g/dl (32.0-37.0); MEAN CORPUSCULAR VOLUME 82.7 fl (82.0-101.0); MEAN PLATELET VOLUME 10.5 fl (7.4-10.4); MONOCYTE # 0.6 10^3/ul (0.3-0.9); MONOCYTES % 9.4 % (0.0-11.0); NEUTROPHIL # 3.9 10^3/ul (1.6-7.5); NEUTROPHILS % 64.1 % (39.0-77.0); RED CELL DISTRIBUTION WIDTH 14.1 % (11.5-14.5)
[2018-03-17 09:21] LABS: PLATELET COUNT 341 10^3/UL (140-415); POSITIVE DIFF @See below
[2018-03-17] MEDS: ZYVOX 600 MG TAB PO ×3 (11:00→21:12)
[2018-03-17] MEDS: FOSFOMYCIN 3 GM PACKET PO (12:24)
[2018-03-17] MEDS: MONTELUKAST 10 MG TAB GTB (21:11)
[2018-03-18] MEDS: ALBUTEROL HFA 8 GM INHALER INH ×4 (01:40→19:43)
[2018-03-18 07:02] LABS: ADD MAN DIFF? NO
[2018-03-18 07:06] LABS: BASOPHIL # 0.1 10^3/ul (0.0-0.1); BASOPHILS % 0.6 % (0.0-2.0); EOSINOPHILS # 0.1 10^3/ul (0.0-0.5); EOSINOPHILS % 1.5 % (0.0-7.0); HEMATOCRIT 32.8 % (37.0-47.0); HEMOGLOBIN 11.2 g/dl (12.0-16.0); LYMPHOCYTES # 2.7 10^3/ul (0.8-2.9); LYMPHOCYTES % 33.7 % (15.0-51.0); MEAN CORPUSCULAR HEMOGLOBIN 28.4 pg (29.0-33.0); MEAN CORPUSCULAR HGB CONC 34.1 g/dl (32.0-37.0); MEAN CORPUSCULAR VOLUME 83.2 fl (82.0-101.0); MEAN PLATELET VOLUME 8.7 fl (7.4-10.4); MONOCYTE # 0.8 10^3/ul (0.3-0.9); MONOCYTES % 9.6 % (0.0-11.0); NEUTROPHIL # 4.3 10^3/ul (1.6-7.5); NEUTROPHILS % 53.2 % (39.0-77.0); PLATELET COUNT 434 10^3/UL (140-415); RED BLOOD COUNT 3.94 10^6/ul (4.20-5.40); RED CELL DISTRIBUTION WIDTH 13.9 % (11.5-14.5)
[2018-03-18] MEDS: FAMOTIDINE 20 MG TAB GTB ×2 (08:34→20:56)
[2018-03-18] MEDS: METOPROLOL 50 MG TAB GTB ×2 (08:34→20:56)
[2018-03-18] MEDS: FERROUS SULFATE 60 MG/ML 5ML CUP PO (08:34)
[2018-03-18] MEDS: ZYVOX 600 MG TAB PO (08:35)
[2018-03-18] MEDS: BACITRACIN/POLYMYX 3.5 GM OPH OINT BOTH EYES ×3 (08:35→20:55)
[2018-03-18] MEDS: LACTOBACILLUS RHAMNOSUS CAP GTB (08:35)
[2018-03-18] MEDS: LEVETIRACETAM (100 MG/ML) 5ML CUP GTB ×2 (08:35→20:55)
[2018-03-18] MEDS: CHOLECALCIFEROL 400 UNITS TAB GTB (08:35)
[2018-03-18] MEDS: PHENYTOIN (25 MG/ML PO SYG) GTB ×2 (08:35→20:55)
[2018-03-18 08:52] LABS: ANION GAP 14 (8-16); BLOOD UREA NITROGEN 6 mg/dl (7-20); CALCIUM 9.6 mg/dl (8.4-10.2); CARBON DIOXIDE 28 mmol/L (21-31); CHLORIDE 97 mmol/L (97-110); CREATININE 0.23 mg/dl (0.44-1.00); GLUCOSE 114 mg/dl (70-220); PHOSPHORUS 5.2 mg/dl (2.5-4.9); POTASSIUM 4.8 mmol/L (3.5-5.1); SODIUM 134 mmol/L (135-144)
[2018-03-18] MEDS: ENOXAPARIN 40 MG/0.4 ML SYG SC (08:59)
[2018-03-18] MEDS: MONTELUKAST 10 MG TAB GTB (20:56)
[2018-03-19] MEDS: ALBUTEROL HFA 8 GM INHALER INH ×4 (01:23→20:00)
[2018-03-19 06:34] LABS: ADD MAN DIFF? NO
[2018-03-19 06:42] LABS: BASOPHIL # 0.1 10^3/ul (0.0-0.1); BASOPHILS % 0.7 % (0.0-2.0); EOSINOPHILS # 0.1 10^3/ul (0.0-0.5); EOSINOPHILS % 1.5 % (0.0-7.0); HEMATOCRIT 32.5 % (37.0-47.0); HEMOGLOBIN 10.8 g/dl (12.0-16.0); LYMPHOCYTES # 1.9 10^3/ul (0.8-2.9); MEAN CORPUSCULAR HEMOGLOBIN 27.6 pg (29.0-33.0); MEAN CORPUSCULAR HGB CONC 33.2 g/dl (32.0-37.0); MEAN CORPUSCULAR VOLUME 83.1 fl (82.0-101.0); MEAN PLATELET VOLUME 9.2 fl (7.4-10.4); MONOCYTE # 0.6 10^3/ul (0.3-0.9); NEUTROPHIL # 4.3 10^3/ul (1.6-7.5); NEUTROPHILS % 60.5 % (39.0-77.0); PLATELET COUNT 407 10^3/UL (140-415); RED BLOOD COUNT 3.91 10^6/ul (4.20-5.40); RED CELL DISTRIBUTION WIDTH 14.1 % (11.5-14.5)
[2018-03-19 06:42] LABS: WHITE BLOOD COUNT 7.2 10^3/ul (4.8-10.8)
[2018-03-19 07:05] LABS: ALBUMIN 3.7 g/dl (3.3-4.9); ANION GAP 18 (8-16); BLOOD UREA NITROGEN 11 mg/dl (7-20); CALCIUM 9.2 mg/dl (8.4-10.2); CARBON DIOXIDE 25 mmol/L (21-31); CHLORIDE 95 mmol/L (97-110); GLUCOSE 113 mg/dl (70-220); PHOSPHORUS 5.7 mg/dl (2.5-4.9); POTASSIUM 4.9 mmol/L (3.5-5.1); SODIUM 133 mmol/L (135-144)
[2018-03-19] MEDS: METOPROLOL 50 MG TAB GTB ×2 (09:00→21:00)
[2018-03-19] MEDS: PHENYTOIN (25 MG/ML PO SYG) GTB ×2 (09:52→21:00)
[2018-03-19] MEDS: LACTOBACILLUS RHAMNOSUS CAP GTB (09:53)
[2018-03-19] MEDS: CHOLECALCIFEROL 400 UNITS TAB GTB (09:53)
[2018-03-19] MEDS: FAMOTIDINE 20 MG TAB GTB ×2 (09:53→21:00)
[2018-03-19] MEDS: LEVETIRACETAM (100 MG/ML) 5ML CUP GTB ×2 (09:54→21:00)
[2018-03-19] MEDS: BACITRACIN/POLYMYX 3.5 GM OPH OINT BOTH EYES ×3 (09:54→21:05)
[2018-03-19] MEDS: FERROUS SULFATE 60 MG/ML 5ML CUP PO (09:54)
[2018-03-19] MEDS: ENOXAPARIN 40 MG/0.4 ML SYG SC (10:00)
[2018-03-19] MEDS: MONTELUKAST 10 MG TAB GTB (21:00)
[2018-03-20] MEDS: ACCU-CHEK XX ×6 (00:49→21:00)
[2018-03-20] MEDS: ALBUTEROL HFA 8 GM INHALER INH ×4 (01:58→19:36)
[2018-03-20 08:39] LABS: ALBUMIN 3.9 g/dl (3.3-4.9); ANION GAP 16 (8-16); BLOOD UREA NITROGEN 8 mg/dl (7-20); CALCIUM 9.4 mg/dl (8.4-10.2); CARBON DIOXIDE 24 mmol/L (21-31); CHLORIDE 97 mmol/L (97-110); CREATININE 0.21 mg/dl (0.44-1.00); GLUCOSE 100 mg/dl (70-220); POTASSIUM 4.6 mmol/L (3.5-5.1); SODIUM 132 mmol/L (135-144)
[2018-03-20] MEDS: METOPROLOL 50 MG TAB GTB ×2 (09:00→21:13)
[2018-03-20] MEDS: LACTOBACILLUS RHAMNOSUS CAP GTB (09:00)
[2018-03-20] MEDS: FAMOTIDINE 20 MG TAB GTB ×2 (09:00→21:13)
[2018-03-20] MEDS: CHOLECALCIFEROL 400 UNITS TAB GTB (09:00)
[2018-03-20] MEDS: FERROUS SULFATE 60 MG/ML 5ML CUP PO (09:00)
[2018-03-20] MEDS: ENOXAPARIN 40 MG/0.4 ML SYG SC (09:13)
[2018-03-20] MEDS ORDERED: PHENYTOIN 100 MG INJ IV (11:00)
[2018-03-20] MEDS ORDERED: LEVETIRACETAM 1500 MG (PMX) 100 ML IVPB (11:30)
[2018-03-20] MEDS: BACITRACIN/POLYMYX 3.5 GM OPH OINT BOTH EYES ×3 (12:38→21:14)
[2018-03-20] MEDS: LIDOCAINE 1% (MPF) 5 ML VIAL SC (13:20)
[2018-03-20] MEDS: SOD CHLORIDE 0.9% 100 ML (13:40)
[2018-03-20] MEDS: PHENYTOIN 100 MG INJ IV ×2 (15:59→22:06)
[2018-03-20] MEDS: LEVETIRACETAM 1500 MG (PMX) 100 ML IVPB ×2 (16:01→22:06)
[2018-03-20] MEDS: MONTELUKAST 10 MG TAB GTB (21:13)
[2018-03-21] MEDS: ACCU-CHEK XX ×6 (01:00→21:00)
[2018-03-21] MEDS: ALBUTEROL HFA 8 GM INHALER INH ×4 (01:49→19:45)
[2018-03-21 07:05] LABS: ADD MAN DIFF? NO
[2018-03-21 07:12] LABS: WHITE BLOOD COUNT 7.2 10^3/ul (4.8-10.8)
[2018-03-21 07:12] LABS: BASOPHILS % 0.6 % (0.0-2.0); EOSINOPHILS # 0.1 10^3/ul (0.0-0.5); EOSINOPHILS % 1.5 % (0.0-7.0); HEMATOCRIT 29.1 % (37.0-47.0); HEMOGLOBIN 9.9 g/dl (12.0-16.0); LYMPHOCYTES # 1.4 10^3/ul (0.8-2.9); LYMPHOCYTES % 19.4 % (15.0-51.0); MEAN CORPUSCULAR HEMOGLOBIN 28.2 pg (29.0-33.0); MEAN CORPUSCULAR VOLUME 82.9 fl (82.0-101.0); MEAN PLATELET VOLUME 9.1 fl (7.4-10.4); MONOCYTE # 0.5 10^3/ul (0.3-0.9); MONOCYTES % 7.2 % (0.0-11.0); NEUTROPHIL # 5.1 10^3/ul (1.6-7.5); NEUTROPHILS % 70.6 % (39.0-77.0); PLATELET COUNT 390 10^3/UL (140-415); RED BLOOD COUNT 3.51 10^6/ul (4.20-5.40); RED CELL DISTRIBUTION WIDTH 13.9 % (11.5-14.5)
[2018-03-21 07:43] LABS: ANION GAP 13 (8-16); BLOOD UREA NITROGEN 7 mg/dl (7-20); CALCIUM 9.3 mg/dl (8.4-10.2); CARBON DIOXIDE 25 mmol/L (21-31); CHLORIDE 100 mmol/L (97-110); GLUCOSE 121 mg/dl (70-220); MAGNESIUM 1.8 mg/dl (1.7-2.5); PHOSPHORUS 5.5 mg/dl (2.5-4.9); POTASSIUM 3.7 mmol/L (3.5-5.1); SODIUM 134 mmol/L (135-144)
[2018-03-21] MEDS: LEVETIRACETAM 1500 MG (PMX) 100 ML IVPB (09:09)
[2018-03-21] MEDS: CHOLECALCIFEROL 400 UNITS TAB GTB (09:09)
[2018-03-21] MEDS: FERROUS SULFATE 60 MG/ML 5ML CUP PO (09:09)
[2018-03-21] MEDS: PHENYTOIN 100 MG INJ IV (09:09)
[2018-03-21] MEDS: FAMOTIDINE 20 MG TAB GTB ×2 (09:10→21:05)
[2018-03-21] MEDS: LACTOBACILLUS RHAMNOSUS CAP GTB (09:10)
[2018-03-21] MEDS: METOPROLOL 50 MG TAB GTB ×2 (09:11→21:05)
[2018-03-21] MEDS: ENOXAPARIN 40 MG/0.4 ML SYG SC (09:13)
[2018-03-21] MEDS: BACITRACIN/POLYMYX 3.5 GM OPH OINT BOTH EYES ×3 (10:59→21:04)
[2018-03-21] MEDS: PHENYTOIN (100 MG/4 ML) CUP NGT (21:04)
[2018-03-21] MEDS: LEVETIRACETAM (100 MG/ML) 5ML CUP GTB (21:04)
[2018-03-21] MEDS: MONTELUKAST 10 MG TAB GTB (21:05)
[2018-03-22] MEDS: ACCU-CHEK XX ×6 (01:00→21:00)
[2018-03-22] MEDS: ALBUTEROL HFA 8 GM INHALER INH ×4 (01:09→19:18)
[2018-03-22] MEDS: CHOLECALCIFEROL 400 UNITS TAB GTB (08:59)
[2018-03-22] MEDS: FAMOTIDINE 20 MG TAB GTB ×2 (08:59→22:04)
[2018-03-22] MEDS: FERROUS SULFATE 60 MG/ML 5ML CUP PO (09:00)
[2018-03-22] MEDS: METOPROLOL 50 MG TAB GTB ×2 (09:00→21:00)
[2018-03-22] MEDS: LEVETIRACETAM (100 MG/ML) 5ML CUP GTB ×2 (09:01→22:03)
[2018-03-22] MEDS: LACTOBACILLUS RHAMNOSUS CAP GTB (09:01)
[2018-03-22] MEDS: PHENYTOIN (100 MG/4 ML) CUP NGT ×2 (09:01→22:04)
[2018-03-22] MEDS: BACITRACIN/POLYMYX 3.5 GM OPH OINT BOTH EYES ×3 (09:02→21:00)
[2018-03-22] MEDS: ENOXAPARIN 40 MG/0.4 ML SYG SC (09:03)
[2018-03-22] MEDS: MONTELUKAST 10 MG TAB GTB (22:06)
[2018-03-23] MEDS: ACETAMINOPHEN 325 MG TAB GTB (00:49)
[2018-03-23] MEDS: ACCU-CHEK XX ×6 (01:15→21:57)
[2018-03-23] MEDS: ALBUTEROL HFA 8 GM INHALER INH ×4 (01:30→19:51)
[2018-03-23] MEDS: PHENYTOIN (100 MG/4 ML) CUP NGT ×2 (08:28→21:54)
[2018-03-23] MEDS: FERROUS SULFATE 60 MG/ML 5ML CUP PO (08:28)
[2018-03-23] MEDS: LACTOBACILLUS RHAMNOSUS CAP GTB (08:29)
[2018-03-23] MEDS: FAMOTIDINE 20 MG TAB GTB ×2 (08:29→21:55)
[2018-03-23] MEDS: LEVETIRACETAM (100 MG/ML) 5ML CUP GTB ×2 (08:29→21:54)
[2018-03-23] MEDS: METOPROLOL 50 MG TAB GTB ×2 (08:36→21:55)
[2018-03-23] MEDS: BACITRACIN/POLYMYX 3.5 GM OPH OINT BOTH EYES ×3 (08:37→21:55)
[2018-03-23] MEDS: CHOLECALCIFEROL 400 UNITS TAB GTB (08:37)
[2018-03-23] MEDS: ENOXAPARIN 40 MG/0.4 ML SYG SC (08:39)
[2018-03-23] MEDS: MONTELUKAST 10 MG TAB GTB (21:55)
[2018-03-24] MEDS: ALBUTEROL HFA 8 GM INHALER INH ×4 (01:35→19:50)
[2018-03-24] MEDS: ACCU-CHEK XX ×3 (05:37→17:35)
[2018-03-24] MEDS: FAMOTIDINE 20 MG TAB GTB ×2 (08:53→21:41)
[2018-03-24] MEDS: FERROUS SULFATE 60 MG/ML 5ML CUP PO (08:53)
[2018-03-24] MEDS: PHENYTOIN (100 MG/4 ML) CUP NGT ×2 (08:53→21:41)
[2018-03-24] MEDS: LEVETIRACETAM (100 MG/ML) 5ML CUP GTB ×2 (08:53→21:41)
[2018-03-24] MEDS: LACTOBACILLUS RHAMNOSUS CAP GTB (08:53)
[2018-03-24] MEDS: CHOLECALCIFEROL 400 UNITS TAB GTB (08:53)
[2018-03-24] MEDS: METOPROLOL 50 MG TAB GTB ×2 (08:54→21:42)
[2018-03-24] MEDS: BACITRACIN/POLYMYX 3.5 GM OPH OINT BOTH EYES ×3 (08:55→21:43)
[2018-03-24] MEDS: ENOXAPARIN 40 MG/0.4 ML SYG SC (08:56)
[2018-03-24] MEDS: MONTELUKAST 10 MG TAB GTB (21:41)
[2018-03-25] MEDS: ACCU-CHEK XX ×4 (00:23→17:57)
[2018-03-25] MEDS: ALBUTEROL HFA 8 GM INHALER INH ×4 (01:14→19:27)
[2018-03-25 06:49] LABS: ADD MAN DIFF? NO
[2018-03-25 07:12] LABS: WHITE BLOOD COUNT 10.2 10^3/ul (4.8-10.8)
[2018-03-25 07:12] LABS: BASOPHILS % 0.3 % (0.0-2.0); EOSINOPHILS # 0.3 10^3/ul (0.0-0.5); EOSINOPHILS % 2.5 % (0.0-7.0); HEMATOCRIT 29.1 % (37.0-47.0); HEMOGLOBIN 10.2 g/dl (12.0-16.0); LYMPHOCYTES # 1.7 10^3/ul (0.8-2.9); LYMPHOCYTES % 16.9 % (15.0-51.0); MEAN CORPUSCULAR HEMOGLOBIN 28.3 pg (29.0-33.0); MEAN CORPUSCULAR HGB CONC 35.1 g/dl (32.0-37.0); MEAN CORPUSCULAR VOLUME 80.8 fl (82.0-101.0); MEAN PLATELET VOLUME 9.6 fl (7.4-10.4); MONOCYTE # 0.8 10^3/ul (0.3-0.9); MONOCYTES % 8.1 % (0.0-11.0); NEUTROPHIL # 7.3 10^3/ul (1.6-7.5); NEUTROPHILS % 71.3 % (39.0-77.0); PLATELET COUNT 316 10^3/UL (140-415); RED CELL DISTRIBUTION WIDTH 13.8 % (11.5-14.5)
[2018-03-25 07:24] LABS: ANION GAP 16 (8-16); BLOOD UREA NITROGEN 9 mg/dl (7-20); CALCIUM 9.2 mg/dl (8.4-10.2); CARBON DIOXIDE 22 mmol/L (21-31); CHLORIDE 93 mmol/L (97-110); CREATININE 0.17 mg/dl (0.44-1.00); GLUCOSE 102 mg/dl (70-220); MAGNESIUM 1.6 mg/dl (1.7-2.5); PHOSPHORUS 5.1 mg/dl (2.5-4.9); POTASSIUM 4.4 mmol/L (3.5-5.1); SODIUM 127 mmol/L (135-144)
[2018-03-25] MEDS: BACITRACIN/POLYMYX 3.5 GM OPH OINT BOTH EYES ×3 (09:30→20:27)
[2018-03-25] MEDS: LEVETIRACETAM (100 MG/ML) 5ML CUP GTB ×2 (09:31→20:27)
[2018-03-25] MEDS: FERROUS SULFATE 60 MG/ML 5ML CUP PO (09:31)
[2018-03-25] MEDS: LACTOBACILLUS RHAMNOSUS CAP GTB (09:32)
[2018-03-25] MEDS: PHENYTOIN (100 MG/4 ML) CUP NGT ×2 (09:32→20:27)
[2018-03-25] MEDS: FAMOTIDINE 20 MG TAB GTB ×2 (09:32→20:27)
[2018-03-25] MEDS: METOPROLOL 50 MG TAB GTB ×2 (09:32→20:27)
[2018-03-25] MEDS: CHOLECALCIFEROL 400 UNITS TAB GTB (09:32)
[2018-03-25] MEDS: ENOXAPARIN 40 MG/0.4 ML SYG SC (09:36)
[2018-03-25] MEDS: SOD CHLORIDE 0.9% 1,000 ML IV (10:14)
[2018-03-25] MEDS: MAGNESIUM SULFATE 2 GM/50 ML 50 ML IVPB (10:14)
[2018-03-25 18:21] LABS: HEMOGLOBIN A1C 4.6 % (0-5.9)
[2018-03-25] MEDS: MONTELUKAST 10 MG TAB GTB (20:28)
[2018-03-26] MEDS: ACCU-CHEK XX ×3 (00:45→12:00)
[2018-03-26] MEDS: ALBUTEROL HFA 8 GM INHALER INH ×4 (03:58→20:40)
[2018-03-26] MEDS: SOD CHLORIDE 0.9% 1,000 ML IV (08:10)
[2018-03-26 09:08] LABS: ADD MAN DIFF? NO
[2018-03-26 09:23] LABS: BASOPHILS % 0.5 % (0.0-2.0); EOSINOPHILS # 0.1 10^3/ul (0.0-0.5); EOSINOPHILS % 2.2 % (0.0-7.0); HEMATOCRIT 28.4 % (37.0-47.0); HEMOGLOBIN 9.6 g/dl (12.0-16.0); LYMPHOCYTES # 1.5 10^3/ul (0.8-2.9); LYMPHOCYTES % 24.1 % (15.0-51.0); MEAN CORPUSCULAR HEMOGLOBIN 28.1 pg (29.0-33.0); MEAN CORPUSCULAR HGB CONC 33.8 g/dl (32.0-37.0); MEAN PLATELET VOLUME 9.7 fl (7.4-10.4); MONOCYTE # 0.7 10^3/ul (0.3-0.9); MONOCYTES % 11.1 % (0.0-11.0); NEUTROPHIL # 3.7 10^3/ul (1.6-7.5); NEUTROPHILS % 61.1 % (39.0-77.0); PLATELET COUNT 309 10^3/UL (140-415); RED BLOOD COUNT 3.42 10^6/ul (4.20-5.40); RED CELL DISTRIBUTION WIDTH 14.4 % (11.5-14.5)
[2018-03-26] MEDS: BACITRACIN/POLYMYX 3.5 GM OPH OINT BOTH EYES ×3 (09:26→21:40)
[2018-03-26] MEDS: LEVETIRACETAM (100 MG/ML) 5ML CUP GTB ×2 (09:27→21:34)
[2018-03-26] MEDS: FAMOTIDINE 20 MG TAB GTB ×2 (09:27→21:31)
[2018-03-26] MEDS: CHOLECALCIFEROL 400 UNITS TAB GTB (09:27)
[2018-03-26] MEDS: PHENYTOIN (100 MG/4 ML) CUP NGT ×2 (09:27→21:35)
[2018-03-26] MEDS: FERROUS SULFATE 60 MG/ML 5ML CUP PO (09:27)
[2018-03-26] MEDS: LACTOBACILLUS RHAMNOSUS CAP GTB (09:27)
[2018-03-26] MEDS: METOPROLOL 50 MG TAB GTB ×2 (09:28→21:33)
[2018-03-26] MEDS: ENOXAPARIN 40 MG/0.4 ML SYG SC (09:32)
[2018-03-26 09:40] LABS: ANION GAP 13 (8-16); BLOOD UREA NITROGEN 7 mg/dl (7-20); CALCIUM 9.1 mg/dl (8.4-10.2); CARBON DIOXIDE 24 mmol/L (21-31); CHLORIDE 100 mmol/L (97-110); CREATININE 0.17 mg/dl (0.44-1.00); GLUCOSE 105 mg/dl (70-220); MAGNESIUM 1.7 mg/dl (1.7-2.5); PHOSPHORUS 4.9 mg/dl (2.5-4.9); POTASSIUM 4.7 mmol/L (3.5-5.1); SODIUM 132 mmol/L (135-144)
[2018-03-26] MEDS: MONTELUKAST 10 MG TAB GTB (21:32)
[2018-03-27] MEDS: ALBUTEROL HFA 8 GM INHALER INH ×4 (01:25→19:59)
[2018-03-27 10:09] LABS: ADD MAN DIFF? NO
[2018-03-27 10:13] LABS: WHITE BLOOD COUNT 10.2 10^3/ul (4.8-10.8)
[2018-03-27 10:13] LABS: BASOPHIL # 0.1 10^3/ul (0.0-0.1); BASOPHILS % 0.5 % (0.0-2.0); EOSINOPHILS # 0.2 10^3/ul (0.0-0.5); EOSINOPHILS % 1.5 % (0.0-7.0); HEMOGLOBIN 10.1 g/dl (12.0-16.0); LYMPHOCYTES # 1.8 10^3/ul (0.8-2.9); LYMPHOCYTES % 18.1 % (15.0-51.0); MEAN CORPUSCULAR HEMOGLOBIN 27.6 pg (29.0-33.0); MEAN CORPUSCULAR HGB CONC 33.7 g/dl (32.0-37.0); MEAN PLATELET VOLUME 9.4 fl (7.4-10.4); MONOCYTE # 0.8 10^3/ul (0.3-0.9); MONOCYTES % 7.8 % (0.0-11.0); NEUTROPHIL # 7.3 10^3/ul (1.6-7.5); NEUTROPHILS % 71.3 % (39.0-77.0); PLATELET COUNT 323 10^3/UL (140-415); RED BLOOD COUNT 3.66 10^6/ul (4.20-5.40); RED CELL DISTRIBUTION WIDTH 14.3 % (11.5-14.5)
[2018-03-27] MEDS: PHENYTOIN (100 MG/4 ML) CUP NGT (10:15)
[2018-03-27] MEDS: FERROUS SULFATE 60 MG/ML 5ML CUP PO (10:15)
[2018-03-27] MEDS: LEVETIRACETAM (100 MG/ML) 5ML CUP GTB (10:16)
[2018-03-27] MEDS: LACTOBACILLUS RHAMNOSUS CAP GTB (10:16)
[2018-03-27] MEDS: CHOLECALCIFEROL 400 UNITS TAB GTB (10:16)
[2018-03-27] MEDS: FAMOTIDINE 20 MG TAB GTB (10:16)
[2018-03-27] MEDS: METOPROLOL 50 MG TAB GTB (10:17)
[2018-03-27] MEDS: BACITRACIN/POLYMYX 3.5 GM OPH OINT BOTH EYES ×2 (10:17→12:50)
[2018-03-27] MEDS: ENOXAPARIN 40 MG/0.4 ML SYG SC (10:18)
[2018-03-27 10:40] LABS: ANION GAP 13 (8-16); BLOOD UREA NITROGEN 8 mg/dl (7-20); CALCIUM 9.3 mg/dl (8.4-10.2); CARBON DIOXIDE 25 mmol/L (21-31); CHLORIDE 95 mmol/L (97-110); CREATININE 0.18 mg/dl (0.44-1.00); GLUCOSE 108 mg/dl (70-220); MAGNESIUM 1.5 mg/dl (1.7-2.5); PHOSPHORUS 5.5 mg/dl (2.5-4.9); POTASSIUM 4.4 mmol/L (3.5-5.1); SODIUM 129 mmol/L (135-144)
[2018-03-27] MEDS: MAGNESIUM OXIDE 400 MG TAB GTB (12:50)
[2018-03-27] MEDS: SOD CHLORIDE 0.9% 1,000 ML IV (12:51)
[2018-03-27] MEDS: ACETAMINOPHEN 325 MG TAB GTB (18:13)
== END 2018-03-27 20:47 | DRG 870 ==
LOC: TEL 03-09 23:25 → E/R 07:54 → ICU 11:01
PROC: 5A1955Z Respiratory Ventilation, Greater than 96 Consecutive Hours (ICD-10-PCS; principal; 2018-03-04)
PROC: 02HV33Z Insertion of Infusion Device into Superior Vena Cava, Percutaneous Approach (ICD-10-PCS; 2018-03-20)
PROC: B548ZZA Ultrasonography of Superior Vena Cava, Guidance (ICD-10-PCS; 2018-03-20)
DX: A41.9 Sepsis, unspecified organism (principal); J69.0 Pneumonitis due to inhalation of food and vomit; G80.0 Spastic quadriplegic cerebral palsy; R65.21 Severe sepsis with septic shock; G93.49 Other encephalopathy; J96.21 Acute and chronic respiratory failure with hypoxia; E22.2 Syndrome of inappropriate secretion of antidiuretic hormone; T17.490A Other foreign object in trachea causing asphyxiation, initial encounter; Z99.11 Dependence on respirator [ventilator] status; K94.13 Enterostomy malfunction; Z66 Do not resuscitate; G40.909 Epilepsy, unspecified, not intractable, without status epilepticus; Z93.0 Tracheostomy status; M41.9 Scoliosis, unspecified; R13.10 Dysphagia, unspecified; D64.9 Anemia, unspecified; Z74.01 Bed confinement status; R79.9 Abnormal finding of blood chemistry, unspecified; N30.90 Cystitis, unspecified without hematuria; Z16.21 Resistance to vancomycin
CPT/HCPCS: 36569; 36600; 71045; 74018; 76937; 80048; 80051; 80053; 80069; 80185; 80202; 81003; 81025; 82550; 82553; 82803; 82962; 83036; 83605; 83735; 83930; 83935; 84100; 84300; 84484; 85025; 85610; 85730; 87040; 87070; 87081; 87086; 89220; 93005; 93306; 93970; 94002; 94003; 94640; 94664; 96365; 96366; 96375; 99291-25